=== PATIENT | female | born 1965 | race Caucasian/White ===

== ENCOUNTER 2020-11-21 15:43 | Emergency (ER) | payer BC, SELFPAY ==
[2020-11-21 15:48] VITALS: BP 181/93; PULSE 110; RESP 12; TEMP 36.2; O2SAT 100
[2020-11-21 15:56] VITALS: BP 181/93; PULSE 110; RESP 12; TEMP 36.2; O2SAT 100
--- NOTE | 2020-11-21 16:19 | ED.ALLEREA ---
HPI - Allergic Reaction General Chief complaint: Allergic Reaction Stated complaint: REACTION TO CHEMICALS Source: patient Mode of arrival: ambulatory Limitations: no limitations History of Present Illness HPI narrative: Patient is a 54-year-old female who presents complaining of allergic reaction to ZEP cleaning product. She reports she was spraying pipe cleaner above head and product got in eyes. She reports burning and irritation to bilateral eyes which has subsided quite a bit since she tood a shower. She reports mild sob that has since resolved and also mild nausea which continues at this time. Patient reports taking shower prior to arrival. MD complaint: allergic reaction Related Data Home Medications Medication Instructions Recorded Confirmed amlodipine 5 mg PO DAILY 11/21/20 11/21/20 clonazepam 0.25 mg PO DAILY 11/21/20 11/21/20 irbesartan 300 mg PO DAILY 11/21/20 11/21/20 Allergies Allergy/AdvReac Type Severity Reaction Status Date / Time SHAYLEE Inhibitors Allergy Unknown Other Verified 11/21/20 15:53 Review of Systems Review of Systems: Narrative: CONSTITUTIONAL: Denies fever, chills, or sweats. EYES: Reports irritation and redness to bilateral eyes ENT: Reports sinus irritation and congestion CARDIOVASCULAR: Denies chest pain, palpitations, or edema. RESPIRATORY: Denies cough or dyspnea. GASTROINTESTINAL: Reports mild nausea without vomiting and diarrhea x 1 GENITOURINARY: Denies dysuria or hematuria. SKIN: Reports skin irritation prior to shower, now resolved MUSCULOSKELETAL: Denies back pain, joint pain, or myalgia. NEUROLOGIC: Denies headache, numbness, dizziness, or weakness. PSYCHIATRIC: Denies anxiety or depression. [facility] Past Medical History Medical History Anxiety Depression Fibroid, uterine HTN (hypertension) Surgical History Surgical History H/O breast augmentation Family History Family History (Updated 11/21/20 @ 16:24 by JANA Chu) Other No significant family history Social History Social History (Updated 11/21/20 @ 16:25 by JANA Chu) Smoking status: Former smoker Alcohol intake: current Alcohol use details: occasional Substance use: never Living arrangements: with family Exam Narrative: Exam Narrative: GENERAL: Well-appearing, well-nourished, and in no acute distress. HEAD: Normocephalic, atraumatic. EYES: Sclera injected bilaterally, small amount of clear drainage. Conjunctiva are normal. ENT: Mucous membranes pink and moist. Nares clear. No rhinorrhea. Throat normal. Uvula midline. CHEST: No respiratory distress. HEART: Regular rate and rhythm. EXTREMITIES: Normal range of motion. SKIN: Warm, dry, no rash. NEURO: No focal deficits. Alert and oriented x3. Gait steady. PSYCH: Normal affect. No signs of depression or anxiety. Course Vital Signs Vital signs: Vital Signs Temperature 36.2 C L 11/21/20 15:48 Pulse Rate 110 H 11/21/20 15:48 Respiratory Rate 12 11/21/20 15:48 Blood Pressure 181/93 H 11/21/20 15:48 Pulse Oximetry 100 11/21/20 15:48 Temperature 36.2 C L 11/21/20 15:56 Pulse Rate 110 H 11/21/20 15:56 Respiratory Rate 12 11/21/20 15:56 Blood Pressure 181/93 H 11/21/20 15:56 Pulse Oximetry 100 11/21/20 15:56 MDM - Allergic Reaction MDM Narrative Medical decision making narrative: Bilateral eyes flushed with normal saline at this time. Discussed with patient that she may have eye irritation for the next few hours. Patient has showered and changed clothes prior to arrival. Patient symptoms seem well-managed at this time. Discussed with patient that if she becomes more short of breath that she should go to the emergency department for further evaluation. Prescription for Zofran given for mild nausea. Discussed staying well-hydrated and to follow-up with your PCP in 3 to 5 days
[2020-11-21 16:41] VITALS: BP 147/83
--- NOTE | 2020-11-21 16:44 | PC.NURSE ---
both eyes irrigated with approximately 1/2 bottle of dacriose/eye irrigation. Pt tolerated without complaints.
== END 2020-11-21 16:41 | disposition home or self-care (01) ==
PROVIDERS: Emergency Provider Nurse Practitioner; PCP Family Medicine
DX: H57.89 Other specified disorders of eye and adnexa (principal); R11.0 Nausea; T78.49XA Other allergy, initial encounter; I10 Essential (primary) hypertension; F41.9 Anxiety disorder, unspecified; Z87.891 Personal history of nicotine dependence
CPT/HCPCS: 99203; A9270; G0463

== ENCOUNTER → 2021-08-24 09:11 | Outpatient (CLI) | payer BC, SELFPAY ==
[2021-08-25 19:26] LABS: SARS-CoV-2 RNA PCR Negative
== END ==
PROVIDERS: PCP Family Medicine; Visit Provider Family Medicine
DX: Z20.822 Contact with and (suspected) exposure to COVID-19 (principal); R05.9 Cough, unspecified
CPT/HCPCS: C9803; U0003; U0005

== ENCOUNTER → 2021-11-10 02:21 | Outpatient (CLI) | payer BC, SELFPAY ==
[2021-11-10 20:49] LABS: SARS-CoV-2 RNA PCR Positive
== END ==
PROVIDERS: PCP Family Medicine; Visit Provider Family Medicine
DX: U07.1 COVID-19 (principal)
CPT/HCPCS: C9803; U0003; U0005

== ENCOUNTER 2024-09-03 00:10 | Day surgery (SDC) | payer BC, SELFPAY ==
[2024-08-26 10:13] VITALS: BMI 23.4
[2024-09-03 09:05] VITALS: BP 147/87; PULSE 86; RESP 18; TEMP 36.6; O2SAT 100; BMI 22.4
[2024-09-03] MEDS: LACTATED RINGERS 1,000 ML 150 ML IV CONT (09:22)
--- NOTE | 2024-09-03 10:01 | P.PNAN_ITS ---
Anes - Initial Pre Proc Eval Procedure: Operation Date: 09/03/24 10:30 Proposed Procedures p Screening Colonoscopy - Murali Reynolds MD Date/Time: 09/03/24 10:01 Surgeon: Murali Reynolds MD Pre Op Diagnosis: neoplasm screening Patient Data Age: 58 Gender: F Height: 1.7 m Weight: 64.8 kg Last Vital Signs Temp 36.6 C 09/03/24 09:05 Pulse 86 09/03/24 09:05 Resp 18 09/03/24 09:05 BP 147/87 H 09/03/24 09:05 Pulse Ox 100 09/03/24 09:05 O2 Del Method Room Air 09/03/24 09:05 Allergies Allergy/AdvReac Type Severity Reaction Status Date / Time No Known Allergies Allergy Verified 08/26/24 10:35 Home Medications Medication Instructions Recorded Confirmed Type amlodipine 5 mg tablet 5 mg PO DAILY 11/21/20 09/03/24 History clonazepam 0.5 mg tablet 0.25 mg PO DAILY 11/21/20 09/03/24 History irbesartan 300 mg tablet 300 mg PO DAILY 11/21/20 09/03/24 History Patient hx anesthesia problems: none Family hx anesthesia problems: none Results Review: All pre-operative results and documents have been reviewed as part of the pre- operative evaluation. [facility] Past Medical History Medical History Anxiety Depression Fibroid, uterine HTN (hypertension) Surgical History Surgical History H/O breast augmentation Family History Family History Other No significant family history Social History Social History Smoking packs per day: 1 Smoking cigarettes per day: 20.0 Smoking status: Former smoker Alcohol intake: current Drinks per week: 7 Alcohol use details: occasional Substance use: never Living arrangements: with family Spiritual care concerns: No Anes - Eval Final PreProcedure Day of Procedure 09/03/24 10:01 Patient weight: normal Heart: regular rate and rhythm Lungs: clear to auscultation Airway: Mallampati scale class II Neurological: alert and oriented Last oral intake: >/= 8 hours ASA classification: II Emergent: no Anesthetic plan: proceed Anesthesia type and monitoring: general GIVS Results Review: All pre-operative results and documents have been reviewed as part of the pre- operative evaluation. Informed Consent: The patient's anesthetic plan and its attendant risks and benefits were discussed with the patient/family/POA. Questions were solicited and answers provided to the satisfaction of the patient/family/POA.
--- NOTE | 2024-09-03 10:02 | PM.HPGS ---
History of Present Illness History of Present Illness Consent: Risks, benefits, and alternatives have been discussed and questions answered. Patient agrees to proceed with procedure. Chief complaint: neoplasm screening Narrative: Alyssa Whitaker is a 58 year old female here for screening colonoscopy, last one 10 years ago Review of Systems Review of Systems: All systems reviewed & are unremarkable except as noted in HPI and below PMFSH Past Medical History Medical History (Updated 09/03/24 @ 10:04 by Murali Reynolds MD) Anxiety Colon cancer screening Depression Fibroid, uterine HTN (hypertension) Surgical History Surgical History H/O breast augmentation Family History Family History Other No significant family history Social History Social History Smoking packs per day: 1 Smoking cigarettes per day: 20.0 Smoking status: Former smoker Alcohol intake: current Drinks per week: 7 Alcohol use details: occasional Substance use: never Living arrangements: with family Spiritual care concerns: No Meds Home Medications and Allergies Home Medications Medication Instructions Recorded Confirmed Type amlodipine 5 mg tablet 5 mg PO DAILY 11/21/20 09/03/24 History clonazepam 0.5 mg tablet 0.25 mg PO DAILY 11/21/20 09/03/24 History irbesartan 300 mg tablet 300 mg PO DAILY 11/21/20 09/03/24 History Allergies Allergy/AdvReac Type Severity Reaction Status Date / Time No Known Allergies Allergy Verified 08/26/24 10:35 Vital Signs Vital Signs - 24 hr 09/03/24 09:05 Temperature 97.9 F Pulse Rate 86 Respiratory Rate 18 Blood Pressure 147/87 H Pulse Oximetry 100 Oxygen Delivery Room Air Exam Const: General: comfortable and no acute distress HENMT: Face/Nose/Sinus: Normal nares present Eyes: General: appearance normal, both eyes and all related structures Neck: Neck: no JVD Resp: Auscultation: clear to auscultation bilaterally Cardio: Rate: regular rate Rhythm: regular rhythm GI: Inspection: non-distended GI Palp: Yes Soft to palpation Skin: General skin exam: normal color Neuro: General: gait normal Speech: normal speech Extrem: General: normal to inspection Psych: Mental Status: mental status grossly normal Assessment and Plan Assessment and plan (1) Colon cancer screening: Code(s): Z12.11 - Encounter for screening for malignant neoplasm of colon Status: Acute Assessment and Plan: colonoscopy
[2024-09-03 10:18] VITALS: BP 114/69; PULSE 78; RESP 25; O2SAT 99
[2024-09-03 10:28] VITALS: BP 124/84; PULSE 78; RESP 20; O2SAT 99
[2024-09-03 10:38] VITALS: BP 148/87; PULSE 65; RESP 20; O2SAT 100
== END 2024-09-03 10:55 | disposition home or self-care (01) ==
PROVIDERS: PCP Family Medicine; Referring Provider Physician Assistant; Visit Provider Internal Medicine Gastroenterology
PROC: 0DJD8ZZ Inspection of Lower Intestinal Tract, Via Natural or Artificial Opening Endoscopic (ICD-10-PCS; CPT 45378; principal; 2024-09-03 10:30)
DX: Z12.11 Encounter for screening for malignant neoplasm of colon (principal); D12.0 Benign neoplasm of cecum; K64.8 Other hemorrhoids; I10 Essential (primary) hypertension; F41.9 Anxiety disorder, unspecified; F32.A Depression, unspecified; Z98.890 Other specified postprocedural states; Z87.891 Personal history of nicotine dependence
CPT/HCPCS: 45380; 88305; J2704; J7120